=== PATIENT | male | born 1965 | race Caucasian/White ===

== ENCOUNTER 2023-04-04 21:41 | Inpatient (IN) | payer MEDICAID ==
[~2023-04-04] VITALS: Ht 175.3 cm; Wt 70.3 kg
[2023-04-04] MEDS ORDERED: NITROGLYCERIN OINT 1 GM PACKET TP ONE ×2 (23:15→23:59)
[2023-04-04] MEDS ORDERED: CLONIDINE HCL 0.2 MG TABLET PO ONE (23:15)
[2023-04-04 23:34] LABS: BASOPHILS # (AUTO) 0.1 K/UL (0.0-0.2); EOSINOPHILS # (AUTO) 0.2 K/uL (0.0-0.7); EOSINOPHILS % (AUTO) 2.7 % (0.0-7.0); HEMATOCRIT 45.6 % (36.7-47.1); HEMOGLOBIN 15.7 g/dL (12.5-16.3); LYMPHOCYTES # (AUTO) 1.8 K/uL (0.8-4.8); LYMPHOCYTES % (AUTO) 27.6 % (20.5-51.5); MEAN CORPUSCULAR HEMOGLOBIN 33.4 uug (23.8-33.4); MEAN CORPUSCULAR HGB CONC 34 g/dL (32.5-36.3); MEAN CORPUSCULAR VOLUME 97.2 fL (73.0-96.2); MONOCYTES # (AUTO) 0.8 K/uL (0.1-1.30); MONOCYTES % (AUTO) 11.7 % (0.0-11.0); NEUTROPHILS # (AUTO) 3.7 K/uL (1.8-8.9); PLATELET COUNT (AUTO) 297 K/uL (152-348); RED CELL DISTRIBUTION WIDTH 12.6 % (12.1-16.2); WHITE BLOOD COUNT (AUTO) 6.5 K/uL (3.6-10.2)
[2023-04-04 23:46] LABS: DIFFERENTIAL COMMENT 1
[2023-04-04 23:56] LABS: CALCIUM 8.7 mg/dL (8.5-10.1); CARBON DIOXIDE 28 mmol/L (21-32); CHLORIDE 104 mmol/L (98-107); CREATININE 1.1 mg/dL (0.6-1.3); GLUCOSE 94 mg/dL (74-106); POTASSIUM 3.8 mmol/L (3.5-5.1); SODIUM SERUM 141 mmol/L (136-145); UREA NITROGEN, BLOOD 8 mg/dL (7-18)
[2023-04-04] MEDS ORDERED: CLONIDINE HCL 0.2 MG TABLET ONE (23:59)
[2023-04-05 00:02] LABS: *BILIRUBIN,URIN NEGATIVE (NEGATIVE); *BLOOD, URINE NEGATIVE (NEGATIVE); *CLARITY,URINE CLEAR (CLEAR); *COLOR,URINE YELLOW (YELLOW); *KETONES,URINE NEGATIVE (NEGATIVE); *PROTEIN,URINE NEGATIVE (NEGATIVE); *UROBILINOGEN,URINE 0.2 E.U./dl (NORMAL); LEUKOCYTE ESTERASE ,URINE NEGATIVE (NEGATIVE); NITRITE, URINE NEGATIVE (NEGATIVE); PH,URINE 5.5 (5.0-8.0); UGLUCOSE NEGATIVE (NEGATIVE)
[2023-04-05 00:08] LABS: ALANINE AMINOTRANSFERASE 34 U/L (16-63); ALBUMIN 3.3 g/dL (3.4-5.0); ALKALINE PHOSPHATASE 131 U/L (50-136); ASPARTATE AMINOTRANSFERASE 28 U/L (15-37); BILIRUBIN,DIRECT 0.1 mg/dL (0.0-0.2); BILIRUBIN,TOTAL 0.4 mg/dL (0.2-1.0); NT-PRO BNP 6659 pg/mL (0-125)
[2023-04-05] MEDS ORDERED: hydrALAZINE HCL IV 20 MG in IV NORMAL SALINE 50 ML IV SCH (00:45)
[2023-04-05] MEDS ORDERED: CLONIDINE HCL 0.2 MG TABLET PO ONE (00:45)
[2023-04-05] MEDS ORDERED: POTASSIUM BICARBONATE/CIT AC 25 MEQ TABLET.EFF PO ONE (00:45)
[2023-04-05] MEDS ORDERED: FUROSEMIDE 20 MG/2 ML VIAL IV ONE (00:45)
[2023-04-05] MEDS ORDERED: POTASSIUM BICARBONATE/CIT AC 25 MEQ TABLET.EFF ONE (01:20)
[2023-04-05] MEDS ORDERED: FUROSEMIDE 20 MG/2 ML VIAL ONE (01:20)
[2023-04-05] MEDS ORDERED: MAGNESIUM SULFATE/D5W 300 ML ONE (01:20)
[2023-04-05] MEDS ORDERED: CLONIDINE HCL 0.1 MG TABLET ONE (01:21)
[2023-04-05] MEDS ORDERED: CYANOCOBALAMIN 1000 MCG/ML VIAL IM ONE (01:30)
[2023-04-05] MEDS ORDERED: CLONIDINE HCL 0.1 MG TABLET PO ONE (01:30)
[2023-04-05] MEDS: MAGNESIUM SULFATE/D5W 100 ML IV SCH ×2 (01:35→03:20)
[2023-04-05] MEDS ORDERED: CYANOCOBALAMIN 1000 MCG/ML VIAL ONE (02:15)
[2023-04-05] MEDS ORDERED: hydrALAZINE HCL 20 MG/1 ML VIAL ONE (03:40)
[2023-04-05] MEDS ORDERED: hydrALAZINE HCL 20 MG/1 ML VIAL IV ONE (04:00)
[2023-04-05] MEDS ORDERED: ONDANSETRON 4 MG/2 ML VIAL IV PRN (04:45)
[2023-04-05] MEDS ORDERED: MAGNESIUM HYDROXIDE 30 ML LIQUID UDC PO PRN (04:45)
[2023-04-05] MEDS ORDERED: REMEDY ESSENTIAL ZINC PASTE 113 GM TP PRN (04:45)
[2023-04-05] MEDS ORDERED: HYDROCODONE/APAP 5-325MG TABLET PO PRN (04:45)
[2023-04-05] MEDS ORDERED: NITROGLYCERIN 0.4 MG/TAB BOTTLE SL ONE (04:45)
[2023-04-05] MEDS ORDERED: ACETAMINOPHEN 325 MG TABLET PO PRN (04:45)
[2023-04-05] MEDS ORDERED: hydrALAZINE HCL 20 MG/1 ML VIAL IV PRN (05:00)
[2023-04-05 06:38] LABS: *AMPHETAMINE, URINE POSITIVE (NEGATIVE); *BARBITURATE, URINE NEGATIVE (NEGATIVE); *BENZODIAZEPINE, URINE NEGATIVE (NEGATIVE); *CANNABINOID, URINE NEGATIVE (NEGATIVE); *COCCAINE, URINE NEGATIVE (NEGATIVE); *OPIATE, URINE NEGATIVE (NEGATIVE); *PHENCYCLIDINE SCREEN,URINE NEGATIVE (NEGATIVE); FENTANYL, URINE NEGATIVE (NEGATIVE)
[2023-04-05 08:37] VITALS: BP 114/79; TEMP 97.7; O2SAT 95
[2023-04-05] MEDS: LISINOPRIL 10 MG TABLET PO SCH (09:04)
[2023-04-05] MEDS: ASPIRIN EC 81 MG TABLET.DR PO SCH (09:04)
[2023-04-05] MEDS: PANTOPRAZOLE SODIUM 40 MG TABLET.DR PO SCH (09:10)
[2023-04-05 16:08] VITALS: BP 121/87; TEMP 97.5; O2SAT 95
[2023-04-05 20:18] VITALS: BP 112/79; TEMP 97.8; O2SAT 95
[2023-04-06 04:11] VITALS: BP 127/93; TEMP 97.6; O2SAT 96
[2023-04-06] MEDS: PANTOPRAZOLE SODIUM 40 MG TABLET.DR PO SCH (06:17)
[2023-04-06 06:29] LABS: BASOPHILS # (AUTO) 0.1 K/UL (0.0-0.2); EOSINOPHILS # (AUTO) 0.2 K/uL (0.0-0.7); HEMATOCRIT 46.2 % (36.7-47.1); HEMOGLOBIN 15.9 g/dL (12.5-16.3); LYMPHOCYTES # (AUTO) 1.3 K/uL (0.8-4.8); LYMPHOCYTES % (AUTO) 21.5 % (20.5-51.5); MEAN CORPUSCULAR HEMOGLOBIN 33.8 uug (23.8-33.4); MEAN CORPUSCULAR HGB CONC 34 g/dL (32.5-36.3); MEAN CORPUSCULAR VOLUME 98.1 fL (73.0-96.2); MONOCYTES # (AUTO) 0.6 K/uL (0.1-1.30); MONOCYTES % (AUTO) 10.9 % (0.0-11.0); NEUTROPHILS # (AUTO) 3.7 K/uL (1.8-8.9); NEUTROPHILS % (AUTO) 63.6 % (38.5-71.5); PLATELET COUNT (AUTO) 308 K/uL (152-348); RED BLOOD CELL COUNT(AUTO) 4.71 MIL/uL (4.06-5.63); RED CELL DISTRIBUTION WIDTH 12.9 % (12.1-16.2); WHITE BLOOD COUNT (AUTO) 5.9 K/uL (3.6-10.2)
[2023-04-06 06:42] LABS: DIFFERENTIAL COMMENT 1
[2023-04-06 06:53] LABS: CALCIUM 8.8 mg/dL (8.5-10.1); CREATININE 1.1 mg/dL (0.6-1.3); MAGNESIUM 2.1 mg/dL (1.8-2.4); PHOSPHOROUS 3.4 mg/dL (2.5-4.9); POTASSIUM 3.9 mmol/L (3.5-5.1)
[2023-04-06] MEDS: ASPIRIN EC 81 MG TABLET.DR PO SCH (08:23)
[2023-04-06] MEDS: LISINOPRIL 10 MG TABLET PO SCH (08:23)
[2023-04-06 08:41] VITALS: BP 138/91; TEMP 97.6; O2SAT 98
[2023-04-06 08:44] LABS: THYROID STIMULATING HORMONE 1.192 mIU/mL (0.358-3.740)
[2023-04-06 12:00] VITALS: TEMP 97.7
[2023-04-06] MEDS ORDERED: ASPI-618 PO (14:13)
[2023-04-06] MEDS ORDERED: LISI10TA29 PO (14:13)
[2023-04-06 15:07] VITALS: BP 129/89; TEMP 97.6; O2SAT 95
[2023-04-06 15:57] VITALS: BP 138/100; TEMP 96.7; O2SAT 97
== END 2023-04-06 17:00 | disposition home or self-care (01) | DRG 241 ==
LOC: ER 21:44 → TELE3 04-05 04:40 → MEDSURG3 04-05 08:15
PROVIDERS: ADMIT Nurse Practitioner Acute Care; ATTEND Nurse Practitioner Acute Care
DX: K29.20 Alcoholic gastritis without bleeding (principal); E83.42 Hypomagnesemia; I16.0 Hypertensive urgency; F10.10 Alcohol abuse, uncomplicated; F17.210 Nicotine dependence, cigarettes, uncomplicated; I10 Essential (primary) hypertension; Z59.00 Homelessness unspecified; Z71.6 Tobacco abuse counseling; F15.10 Other stimulant abuse, uncomplicated; R78.9 Finding of unspecified substance, not normally found in blood
CPT/HCPCS: 36415; 71045; 83605; 83735; 84100; 84443; 84484; 85025; 85730; 93005; 93307; G0378; J0360; J1940; J3420; J3475